=== PATIENT | female | born 1960 | race Caucasian/White ===

== ENCOUNTER 2023-11-04 13:14 | Inpatient (IN) | payer BC, SELFPAY ==
[2023-11-04] VITALS (12 sets, daily range): BP systolic 92–162; BP diastolic 53–115; BMI 21.8
[2023-11-04 12:12] LABS: ACT-LR - POC 234 Seconds (116-155)
--- NOTE | 2023-11-04 13:16 | ITS.CL.ABL ---
Electron Beam Operator - Ablation
Ablation
Procedure Report:
ELECTROPHYSIOLOGY STUDY REPORT
Date of Procedure: November 04, 2023
Primary care physician: Dr. Alize Enriquez
Primary Ssn/Ssbn Assistant Navigator: Dr. Kam Bell
INDICATION: Supraventricular tachycardia, palpitations
HISTORY: She has had symptoms of palpitations/rapid heart beating. Rather it mostly very short flurries but occasionally she describes longer episodes lasting up to an hour. Outpatient monitoring has demonstrated only very short burst of
nonsustained paroxysmal atrial tachycardia of heart rate ranging between 100 5170 bpm. She is been attempted on medical therapy which has included increasing dose metoprolol but has failed to gain satisfactory symptom relief. She presents now for
elective physiologic evaluation and possible ablation.
'Time-out' was called and confirmed.
Presenting rhythm: Sinus rhythm
PROCEDURE:
Ultrasound Guidance performed by md was utilized for femoral venous Vascular Access b/l. Vascular US demonstrated the typical vascular anatomy.
Multipolar recording catheters were positioned at the HRA, RVA, His bundle and CS (for left atrial recording/mapping).
Mapping, recording and pacing were performed from these sites.
Baseline measurements were recorded and analyzed. Antegrade and retrograde AV jim Wenkebach CLs were obtained.
Programmed electrical stimulation was performed. Premature extrastimuli were delivered from the HRA, CS and RVA catheters.
Burst atrial pacing was also performed from HRA and LA (CS) sites.
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 No inducible arrhythmias based on this mechanism
There was a nonsustained run (10 beats) of a rather slow atrial tachycardia at cycle length of 510 ms.
Isoproterenol infusion was then begun and dose was escalated. During infusion as well as with escalation and with drug washout, programmed electrical stimulation was repeated to include atrial decremental extrastimuli as well as burst atrial pacing
and no arrhythmias could be induced.
Of note, during atrial pacing at 230 ms right bundle branch aberrancy is observed similar to the ' wide-complex tachycardia' observed on ECG at her most recent [facility] stay.
Next ventricular programmed electrical stimulation was performed to include ventricular decremental extrastimuli as well as burst ventricular pacing and no ventricular arrhythmias could be induced.
Findings:
-No inducible sustained arrhythmias
-Clinically she has had atrial tachycardia rather sporadically but this has been noninducible in the laboratory. As an outpatient she had been treated with escalating dose flecainide until this was stopped and she was placed on amiodarone after she
developed a wide-complex tachycardia and there was concern for the possibility of ventricular tachycardia. The wide-complex tachycardia is SVT with aberrancy. Type Ic agent was not very effective at controlling her symptoms. Given her age would
prefer to avoid amiodarone. She has normal renal function and normal corrected QT interval. Will admit her for sotalol loading at 80 mg twice daily. I discussed this with the patient and her .
Copy:
Dr. Alize Enriquez
Dr. Kam Bell
--- NOTE | 2023-11-04 14:18 | PTCARENOTE ---
Patient received from the construction laborer. B/L femoral dressing CDI. +2 pedal pulses. Bedrest maintained. NSR HR 60's. EKG completed. at bedside
[2023-11-04] MEDS: BETAPACE 80 MG PO (14:32)
[2023-11-04] MEDS: QUESTRAN 4 GRAM PO (14:33)
--- NOTE | 2023-11-04 15:47 | CM ---
Chart reviewed. Patient is independent of ADLS, lives with her in a 2 [address], 1 TERRY, 0 DME. Plans is for the patient to return home. CM to follow
--- NOTE | 2023-11-04 18:42 | PTCARENOTE ---
Patient out of bed in the chair. B/L femoral dressing dry and soft, NSR on telemetry, call rivera in reach
[2023-11-04] MEDS: ELIQUIS 5 MG PO (20:42)
[2023-11-04] MEDS: LIPITOR 20 MG PO (20:42)
[2023-11-04] MEDS: TYLENOL 650 MG PO (20:46)
[2023-11-05] VITALS (9 sets, daily range): BP systolic 111–130; BP diastolic 58–78
[2023-11-05] MEDS: BETAPACE 80 MG PO ×3 (01:06→21:06)
--- NOTE | 2023-11-05 01:30 | PTCARENOTE ---
Pt c/o mild discomfort 2/10 left chest and left upper back when she's lying down. Denies CP or SOB. VSS. PA made aware, advised to give Tylenol and monitor.
[2023-11-05 03:39] LABS: Hematocrit 42.8 % (37.0-47.0); Hemoglobin 14.4 g/dL (12.0-16.0); Mean Corp Hgb Conc. 33.6 g/dL (33.0-37.0); Mean Corpuscular Hgb 30.4 pg (27.0-31.0); Mean Corpuscular Volume 90.3 fL (81.0-99.0); Mean Platelet Volume 10.4 fL (7.4-10.4); Platelet Count 237 10^3/uL (130-400); Red Blood Cell Count 4.74 10^6/uL (4.20-5.40); Red Cell Dist. Width 13.1 % (11.5-14.5); White Blood Cell Count 12.6 10^3/uL (4.8-10.8)
[2023-11-05 04:03] LABS: Blood Urea Nitrogen 19 mg/dl (7-17); Calcium 9.3 mg/dl (8.4-10.2); Carbon Dioxide 22 mmol/L (22-30); Chloride 108 mmol/L (98-107); Estimated Creatinine Clearance 78 ml/min; Glucose 139 mg/dl (70-99); Potassium 4.6 mmol/L (3.5-5.1); Sodium 140 mmol/L (135-145); eGFR > 60.00
[2023-11-05] MEDS: QUESTRAN 4 GRAM PO (08:28)
[2023-11-05] MEDS: ELIQUIS 5 MG PO ×2 (08:28→20:25)
--- NOTE | 2023-11-05 08:52 | W.PN.CARDCBS ---
Addendum entered and electronically signed by Facundo Duenas MD 11/05/23 13:09:
Patient seen, interviewed and examined by me.
Well-appearing, no acute distress
Regular rate and rhythm with normal S1 and S2, no S3 no S4. There is a grade 1/6 apical holosystolic murmur and no rubs. PMI is normally placed.
Lungs are clear to auscultation bilaterally without wheezes rales or rhonchi.
Abdomen soft nontender nondistended with normoactive bowel sounds
Extremities show trace pretibial edema bilaterally no clubbing or cyanosis.
Neurologic exam is grossly nonfocal.
Agree with advanced practice professionals assessment and plan as noted below.
I discussed with her yesterday's findings and my recommendations for sotalol. All of her questions were answered and she agrees to sotalol loading. QT interval stable thus far continue with sotalol.
Original Note:
Today's Communication / Plan
-
Continue sotalol loading dose #3 of 5 this am
OAC
Impression / Plan
-
Primary care physician: Dr. Alize Enriquez
Primary Claims Vice President: Dr. Kam Bell
63 yo WF h/o symptomatic SVT with palpitations/rapid heart beating. Rather it mostly very short flurries but occasionally she describes longer episodes lasting up to an hour. Outpatient monitoring has demonstrated only very short burst of
nonsustained paroxysmal atrial tachycardia of heart rate ranging between 100-170 bpm. She is been attempted on medical therapy which has included increasing dose metoprolol but has failed to gain satisfactory symptom relief. She presents now for
elective physiologic evaluation and possible ablation.
Impression:
Symptomatic SVT
post EPS with non inducible sustained arrhythmias 11/04/23
Sotalol loading
HTN
HLD
IBS
Plan:
feels good
tele SB no ectopy
groins stable
Sotalol dose #2 QTc stable 479, continue to load to 5 doses
OAC Eliquis
Stop metoprolol and Amiodarone (stopped 10/12)
Activity restrictions reviewed
oob ambulate
f/u Dr. Becerril in 3 mo
continue cardiac care with Dr. Bell
monitor on tele/EKG another 24 hour
Progress Note - Claims Vice President
Subjective
Date of Service: November 05, 2023
no cp, sob, feels good
Objective
Labs:
11/05/23 03:15
11/05/23 03:15
Labs
Hgb 14.4 g/dL (12.0-16.0) 11/05/23 03:15
Hct 42.8 % (37.0-47.0) 11/05/23 03:15
Plt Count 237 10^3/uL (130-400) 11/05/23 03:15
Sodium 140 mmol/L (135-145) 11/05/23 03:15
Potassium 4.6 mmol/L (3.5-5.1) 11/05/23 03:15
BUN 19 mg/dl (7-17) H 11/05/23 03:15
Creatinine 0.8 mg/dL (0.6-1.0) 11/05/23 03:15
Glucose 139 mg/dl (70-99) H 11/05/23 03:15
Vital Signs and I&O:
Vital Signs
Temp Pulse Resp BP Pulse Ox
97.6 F 55 20 112/69 96
11/05/23 07:53 11/05/23 08:30 11/05/23 07:53 11/05/23 07:57 11/05/23 07:57
Vital Signs
Temp Pulse Resp BP Pulse Ox
97.6 F 55 20 112/69 96
11/05/23 07:53 11/05/23 08:30 11/05/23 07:53 11/05/23 07:57 11/05/23 07:57
Intake & Output
11/03/23 11/04/23 11/05/23 11/06/23
06:59 06:59 06:59 06:59
Intake Total 200 / 200
Balance 200 / 200
Physical Exam
Physical Exam
NAD< AOX3
S1, S2, RRR
CTAB< non labored
SNTND bsx4
b/l groins c/d/i no HT, soft
--- NOTE | 2023-11-05 09:41 | CM ---
Sotalol is available at the patient's [facility] pharmacy at $10 a month
--- NOTE | 2023-11-05 09:55 | PTCARENOTE ---
Assumed care at 0700. Patient awake and reading. Femoral sites CDI. Denies pain, SB HR 54. Plan of care reviewed, call rivera in reach
[2023-11-05] MEDS: TYLENOL 650 MG PO ×2 (14:41→20:24)
--- NOTE | 2023-11-05 18:17 | PTCARENOTE ---
Patient with headache earlier, Tylenol given with some relief, cool cloth to face. Femoral site CDI. SB on telemetry, call rivera in reach
[2023-11-05] MEDS: LIPITOR 20 MG PO (20:25)
[2023-11-06 02:08] VITALS: BP 106/64
[2023-11-06 02:19] LABS: Hematocrit 37.9 % (37.0-47.0); Hemoglobin 12.9 g/dL (12.0-16.0); Mean Corpuscular Hgb 29.9 pg (27.0-31.0); Mean Corpuscular Volume 87.9 fL (81.0-99.0); Platelet Count 236 10^3/uL (130-400); Red Blood Cell Count 4.31 10^6/uL (4.20-5.40); Red Cell Dist. Width 13.4 % (11.5-14.5); White Blood Cell Count 12.3 10^3/uL (4.8-10.8)
[2023-11-06 02:43] LABS: Blood Urea Nitrogen 24 mg/dl (7-17); Calcium 9.2 mg/dl (8.4-10.2); Carbon Dioxide 22 mmol/L (22-30); Chloride 107 mmol/L (98-107); Estimated Creatinine Clearance 78 ml/min; Glucose 107 mg/dl (70-99); Magnesium 2.2 mg/dl (1.6-2.3); Potassium 4.4 mmol/L (3.5-5.1); Sodium 142 mmol/L (135-145); eGFR > 60.00
[2023-11-06 07:22] VITALS: BP 116/64
[2023-11-06] MEDS: BETAPACE 80 MG PO (08:19)
[2023-11-06] MEDS: QUESTRAN 4 GRAM PO (08:20)
[2023-11-06] MEDS: ELIQUIS 5 MG PO (08:20)
--- NOTE | 2023-11-06 08:59 | W.PN.CARDCBS ---
Addendum entered and electronically signed by Massimo Kohler MD 11/06/23 10:15:
Patient seen
Agree with MARINE ARCHITECT note and assessment
Agree with MARINE ARCHITECT plan
Exam per MARINE ARCHITECT note
ECGs reviewed with stable QT interval
Impression:
Symptomatic SVT
post EPS with non inducible sustained arrhythmias 11/04/23
Sotalol loading
HTN
HLD
IBS
Plan:
feels good
tele SB no ectopy
groins stable
Sotalol dose #5 this am 80mg q12hr, QTc stable
OAC Eliquis
Stop metoprolol and Amiodarone (stopped 10/12)
Activity restrictions reviewed
oob ambulate
f/u Dr. Becerril in 3 mo
continue cardiac care with Dr. Bell
if post EKG QTc stable after 5th dose, plan for d/c home today
Original Note:
Today's Communication / Plan
-
sotalol loading, if QTc >500 after 5th dose d/c home
Impression / Plan
-
Primary care physician: Dr. Alize Enriquez
Primary Clerk Of Superior Court: Dr. Kam Bell
63 yo WF h/o symptomatic SVT with palpitations/rapid heart beating. Rather it mostly very short flurries but occasionally she describes longer episodes lasting up to an hour. Outpatient monitoring has demonstrated only very short burst of
nonsustained paroxysmal atrial tachycardia of heart rate ranging between 100-170 bpm. She is been attempted on medical therapy which has included increasing dose metoprolol but has failed to gain satisfactory symptom relief. She presents now for
elective physiologic evaluation and possible ablation.
Impression:
Symptomatic SVT
post EPS with non inducible sustained arrhythmias 11/04/23
Sotalol loading
HTN
HLD
IBS
Plan:
feels good
tele SB no ectopy
groins stable
Sotalol dose #5 this am 80mg q12hr, QTc stable
OAC Eliquis
Stop metoprolol and Amiodarone (stopped 10/12)
Activity restrictions reviewed
oob ambulate
f/u Dr. Becerril in 3 mo
continue cardiac care with Dr. Bell
if post EKG QTc stable after 5th dose, plan for d/c home today
Progress Note - Clerk Of Superior Court
Subjective
Date of Service: November 06, 2023
no cp, sob
Objective
Labs:
11/06/23 02:13
11/06/23 02:13
Labs
Hgb 12.9 g/dL (12.0-16.0) 11/06/23 02:13
Hct 37.9 % (37.0-47.0) 11/06/23 02:13
Plt Count 236 10^3/uL (130-400) 11/06/23 02:13
Sodium 142 mmol/L (135-145) 11/06/23 02:13
Potassium 4.4 mmol/L (3.5-5.1) 11/06/23 02:13
BUN 24 mg/dl (7-17) H 11/06/23 02:13
Creatinine 0.8 mg/dL (0.6-1.0) 11/06/23 02:13
Glucose 107 mg/dl (70-99) H 11/06/23 02:13
Vital Signs and I&O:
Vital Signs
Temp Pulse Resp BP Pulse Ox
98 F 54 20 116/64 96
11/06/23 07:13 11/06/23 07:30 11/06/23 07:13 11/06/23 07:22 11/06/23 08:17
Vital Signs
Temp Pulse Resp BP Pulse Ox
98 F 54 20 116/64 96
11/06/23 07:13 11/06/23 07:30 11/06/23 07:13 11/06/23 07:22 11/06/23 08:17
Intake & Output
11/04/23 11/05/23 11/06/23 11/07/23
06:59 06:59 06:59 06:59
Intake Total 200 / 200 360 / 360
Balance 200 / 200 360 / 360
Physical Exam
Physical Exam
NAD< AOX3
S1,S2, RRR
CTAB, non labored
SNTND bsx4
b/l groins soft, dressings removed, trace ecchymosis
--- NOTE | 2023-11-06 10:51 | W.DS.TRANS ---
DC Summary - Certified Control Systems Technician
-
Discharge Instructions:
Discharge Diagnosis/Procedures Atrial tachycardia, Sotalol loading
Diet Low Cholesterol
Driving Restrictions No driving for 24 hours
Instructions:
Stand-Alone Forms: DC Instructions- Cath/EP Lab
Changes to Home Medications: Yes
Discharge Medications:
DC Medications w/original date entered in [employer]
fluticasone propionate 50 mcg/actuation nasal spray,suspension 2 spray intranasal DAILY Allergies 05/07/16
multivitamin (Multi-Day tablet) 1 ea PO QPM Supplement 05/07/16
acetaminophen 500 mg tablet 1,000 mg PO PRN PRN As Needed 02/17/19
albuterol sulfate 90 mcg/actuation aerosol inhaler 18 gm IH PRN PRN As Needed 02/17/19
atorvastatin 20 mg tablet 20 mg PO HS High Cholesterol 02/17/19
apixaban 5 mg tablet (Eliquis) 5 mg PO BID Blood Clot Prevention/Tx 11/04/23
cholestyramine (with sugar) 4 gram powder for susp in a packet 4 g PO DAILY High Cholesterol 11/04/23
hyoscyamine sulfate 0.125 mg/5 mL oral elixir 0.125 mg PO DAILY PRN as needed 11/04/23
sotalol 80 mg tablet 80 mg PO BID #180 tabs 11/06/23
Home Medication Changes
new to sotalol, stopped amiodarone and metoprolol
Pending Results: No
[2023-11-06 11:25] VITALS: BP 124/71
[2023-11-06 14:46] VITALS: BP 103/71
--- NOTE | 2023-11-06 17:00 | PTCARENOTE ---
Pt up walking in halls, seen by Elda Gautam NP. Fifth dose of sotalol given and ECG reviewed . Telemetry and IV device removed. Discharge instructions reviewed with pt regarding activity and driving guidelines, wound care, medications and their
possible side effects, reporting cares and concerns and follow up appt's. Very good understanding verbalized. Pt discharged to home with her .
== END 2023-11-06 16:15 | disposition home or self-care (01) | DRG 274 ==
LOC: IVU 13:14
PROVIDERS: Nurse Practitioner Adult Health; ADMITTING PHYSICIAN Internal Medicine Cardiovascular Disease; FAMILY PHYSICIAN Family Medicine
PROC: 4A0234Z Measurement of Cardiac Electrical Activity, Percutaneous Approach (ICD-10-PCS; 2023-11-04)
PROC: 02K83ZZ Map Conduction Mechanism, Percutaneous Approach (ICD-10-PCS; 2023-11-04)
PROC: 4A023FZ Measurement of Cardiac Rhythm, Percutaneous Approach (ICD-10-PCS; 2023-11-04)
PROC: 3E0DXRZ Introduction of Antiarrhythmic into Mouth and Pharynx, External Approach (ICD-10-PCS; 2023-11-04)
DX: I47.19 Other supraventricular tachycardia (principal); R00.2 Palpitations; I10 Essential (primary) hypertension; E78.5 Hyperlipidemia, unspecified; K58.9 Irritable bowel syndrome, unspecified
CPT/HCPCS: 76937; 80048; 83735; 85027; 85347; 86850; 86900; 86901; 93005; 93620; 93623; C1730; C1732; C1892; C1894